=== PATIENT | male | born 1940 | race Hispanic/Latino ===

== ENCOUNTER 2017-07-29 11:16 | Inpatient (IN) | payer OTHER ==
[~2017-07-29] VITALS: Ht 165.1 cm; Wt 63.4 kg
[2017-07-29 11:40] LABS: EOSINOPHILS % (AUTO) 1.6 % (0.0-8.0); HEMATOCRIT 39.1 % (42-54); LYMPHOCYTES % (AUTO) 30.1 % (21.0-51.0); MEAN CORPUSCULAR HEMOGLOBIN 32.9 pg (27.0-33.0); MEAN CORPUSCULAR VOLUME 93.9 fL (79-99); MONOCYTES % (AUTO) 10.6 % (3.0-13.0); NEUTROPHILS % (AUTO) 56.7 % (40.0-77.0); PLATELET COUNT (AUTO) 210 K/uL (130-400); RED BLOOD CELL COUNT(AUTO) 4.16 MIL/uL (4.50-6.20); RED CELL DISTRIBUTION WIDTH 13.2 % (11.0-15.5); WHITE BLOOD COUNT (AUTO) 5.9 K/uL (4.8-10.8)
[2017-07-29 11:50] LABS: CREATININE 1.3 mg/dL (0.5-1.5)
[2017-07-29 12:03] LABS: ALBUMIN 3.9 g/dL (3.5-5.0); BILIRUBIN,TOTAL 0.6 mg/dL (0.2-1.0); CREATINE KINASE MB 0.7 ng/mL (0.5-3.6); MAGNESIUM 1.6 mg/dL (1.80-2.40); TOTAL PROTEIN, SERUM 7.4 g/dL (6.0-8.3)
[2017-07-29] MEDS ORDERED: SODIUM CHLORIDE 0.9% 1000ML 1,000 ML IV ONE (12:53)
[2017-07-29] MEDS ORDERED: ASPIRIN 325 MG TABLET ONE (12:53)
[2017-07-29] MEDS ORDERED: IOPAMIDOL-370 100 ML VIAL IV ONE (13:04)
[2017-07-29 17:20] VITALS: BP 162/65
[2017-07-29] MEDS ORDERED: LATA2.5D2 OP (18:25)
[2017-07-29] MEDS ORDERED: AMLO-127 PO (18:25)
[2017-07-29] MEDS ORDERED: SPIR1TAB4 PO (18:25)
[2017-07-29] MEDS ORDERED: BRIM5DRO4 OP (18:25)
[2017-07-29] MEDS ORDERED: GABA-531 PO (18:25)
[2017-07-29] MEDS ORDERED: TIMO5DRO39 OP (18:25)
[2017-07-29] MEDS ORDERED: ASPI-1197 PO (18:25)
[2017-07-29] MEDS ORDERED: DONE10TA43 PO (18:25)
[2017-07-29] MEDS ORDERED: METF500T6 PO (18:25)
[2017-07-29] MEDS ORDERED: ATOR10 PO (18:25)
[2017-07-29 19:38] VITALS: BP 152/76
[2017-07-29 20:26] LABS: CREATINE KINASE MB 0.7 ng/mL (0.5-3.6); CREATINE KINASE, TOTAL 68 U/L (21-232); MYOGLOBIN 67 ng/mL (10-92); TROPONIN I < 0.04 ng/mL (0.00-0.06)
[2017-07-29] MEDS ORDERED: DEXTROSE 50%-WATER 50 ML DISP.SYRIN IV PRN (23:00)
[2017-07-29] MEDS ORDERED: GLUCAGON 1MG KIT 1 MG ML IM PRN (23:00)
[2017-07-29] MEDS ORDERED: ACETAMINOPHEN 325 MG TAB PO PRN ×2 (23:15)
[2017-07-29] MEDS ORDERED: ONDANSETRON HCL 4 MG/2 ML VIAL IV PRN (23:15)
[2017-07-29 23:41] VITALS: BP 127/70
[2017-07-30 03:32] VITALS: BP 139/71
[2017-07-30 04:41] LABS: BASOPHILS % (AUTO) 0.6 % (0.0-5.0); EOSINOPHILS % (AUTO) 1.6 % (0.0-8.0); HEMATOCRIT 35.5 % (42-54); LYMPHOCYTES % (AUTO) 33.3 % (21.0-51.0); MEAN CORPUSCULAR HEMOGLOBIN 34.1 pg (27.0-33.0); MEAN CORPUSCULAR HGB CONC 36.3 g/dL (32.0-36.0); MONOCYTES % (AUTO) 9.9 % (3.0-13.0); NEUTROPHILS % (AUTO) 54.6 % (40.0-77.0); PLATELET COUNT (AUTO) 182 K/uL (130-400); RED BLOOD CELL COUNT(AUTO) 3.78 MIL/uL (4.50-6.20); RED CELL DISTRIBUTION WIDTH 12.8 % (11.0-15.5); WHITE BLOOD COUNT (AUTO) 5.9 K/uL (4.8-10.8)
[2017-07-30 04:58] LABS: B-TYPE NATRIURETIC PEPTIDE 90 pg/mL (0-100)
[2017-07-30 05:01] LABS: ALANINE AMINOTRANSFERASE 22 U/L (12-78); ALBUMIN 3.1 g/dL (3.5-5.0); ASPARTATE AMINOTRANSFERASE 13 U/L (10-37); BILIRUBIN,TOTAL 0.6 mg/dL (0.2-1.0); CARBON DIOXIDE 27 mmol/L (21-32); CHLORIDE 107 mmol/L (101-111); CHOLESTEROL 80 mg/dL (<200); CREATINE KINASE MB < 0.5 ng/mL (0.5-3.6); CREATINE KINASE, TOTAL 49 U/L (21-232); GLOMERULAR FILTR. RATE CALC 77 mL/min (>60); GLUCOSE,RANDOM 91 mg/dL (70-105); HDL CHOLESTEROL 30 mg/dL (29-71); LDL DIRECT 45 mg/dL (0-99); MYOGLOBIN 46 ng/mL (10-92); PHOSPHORUS 3.2 mg/dL (2.5-4.9); POTASSIUM 3.4 mmol/L (3.5-5.1); SODIUM SERUM 141 mmol/L (136-145); THYROID STIMULATING HORMONE 3.99 uIU/mL (0.36-3.74); TRIGLYCERIDES 63 mg/dL (30-200); TROPONIN I < 0.04 ng/mL (0.00-0.06); UREA NITROGEN, BLOOD 19 mg/dL (7-18)
[2017-07-30] MEDS: INSULIN HUMULIN R 100 UNIT/ML 3ML SQ SCH ×3 (06:01→16:30)
[2017-07-30 07:00] VITALS: BP 134/77
[2017-07-30] MEDS ORDERED: HYDROCHLOROTHIAZIDE 25 MG TABLET PO SCH (09:00)
[2017-07-30] MEDS ORDERED: ASPIRIN 81MG TAB.CHEW PO SCH (09:00)
[2017-07-30] MEDS ORDERED: AMLODIPINE BESYLATE PO SCH (09:00)
[2017-07-30] MEDS ORDERED: SPIRONOLACTONE 25 MG TAB PO SCH (09:00)
[2017-07-30] MEDS ORDERED: PANTOPRAZOLE SODIUM 40 MG TABLET.DR PO SCH (09:00)
[2017-07-30] MEDS ORDERED: TIMOLOL MALEATE 0.25% 5 ML BOTTLE OP SCH (09:00)
[2017-07-30] MEDS ORDERED: GABAPENTIN 300 MG CAPSULE PO SCH (09:00)
[2017-07-30] MEDS ORDERED: ENOXAPARIN SODIUM 40 MG/0.4 ML SYRINGE SQ SCH (09:00)
[2017-07-30] MEDS ORDERED: METFORMIN HCL 500 MG TABLET PO SCH (09:00)
[2017-07-30] MEDS ORDERED: BENAZEPRIL PO SCH (09:00)
[2017-07-30] MEDS ORDERED: BRIMONIDINE TARTRATE 0.2% 5 ML BOTTLE OP SCH ×2 (09:00)
[2017-07-30] MEDS ORDERED: LATANOPROST 2.5 ML DROPS OP SCH ×2 (09:00→21:00)
[2017-07-30] MEDS ORDERED: DONEPEZIL HCL 5 MG TAB PO SCH (09:00)
[2017-07-30 11:57] VITALS: BP 133/73
[2017-07-30] MEDS ORDERED: LIDOCAINE HCL-MPF 1% 2ML VIAL IVP PRN (12:15)
[2017-07-30] MEDS ORDERED: POTASSIUM CHLORIDE 10% ELIXIR 20 MEQ/15 ML UDCUP PO PRN (12:15)
[2017-07-30] MEDS ORDERED: MAGNESIUM SULFATE 2 GM in SODIUM CHLORIDE 0.9% 50 ML IV SCH (12:15)
[2017-07-30] MEDS ORDERED: POTASSIUM CHLORIDE 20MEQ/100ML 100 ML IV PRN (12:15)
[2017-07-30 16:00] VITALS: BP 144/75
[2017-07-30] MEDS: POTASSIUM CHLORIDE 20 MEQ ERTAB PO PRN ×2 (16:21→18:14)
[2017-07-30] MEDS ORDERED: MAGNESIUM 2GM PREMIX 50ML 50 ML IV NR (17:30)
[2017-07-30 20:00] VITALS: BP 162/80
[2017-07-30] MEDS ORDERED: ATORVASTATIN CALCIUM 10 MG TABLET PO SCH (21:00)
== END 2017-07-30 21:25 | disposition home or self-care (01) | DRG 74 ==
LOC: EDH 11:16 → OBSVTOIN 13:05 → EDHIP 13:05 → 2DH 17:21
PROVIDERS: ADMIT Family Medicine; ATTEND Family Medicine
PROC: 5A12012 Performance of Cardiac Output, Single, Manual (ICD-10-PCS; principal; 2017-07-29)
DX: G52.2 Disorders of vagus nerve (principal); E11.9 Type 2 diabetes mellitus without complications; W18.30XA Fall on same level, unspecified, initial encounter; E78.5 Hyperlipidemia, unspecified; I10 Essential (primary) hypertension; I95.1 Orthostatic hypotension; Y92.238 Other place in hospital as the place of occurrence of the external cause; I25.10 Atherosclerotic heart disease of native coronary artery without angina pectoris; I25.2 Old myocardial infarction; Z79.82 Long term (current) use of aspirin; Y93.89 Activity, other specified; Y99.8 Other external cause status; Z88.1 Allergy status to other antibiotic agents; Z90.49 Acquired absence of other specified parts of digestive tract; Z95.5 Presence of coronary angioplasty implant and graft
CPT/HCPCS: 36415; 71045; 71275; 80053; 80061; 82550; 82553; 82948; 83735; 83874; 83880; 84100; 84443; 84484; 85025; 85378; 92950; 93005; 93306; 93880; J1650; J3475; J7030; Q9967